=== PATIENT | female | born 2000 | race Caucasian/White ===

== ENCOUNTER 2020-03-16 22:36 | Emergency (ER) | payer OTHER, SELFPAY ==
[2020-03-16 22:41] VITALS: BP 129/67; PULSE 66; RESP 20; TEMP 36.6; O2SAT 97
[2020-03-16 23:11] LABS: Add Manual Diff / Slide Review NO; Basophils Absolute Auto 0 /uL (0-100); Basophils Percent Auto 0.3 % (0-2); Eosinophils Absolute Auto 0 /uL (0-450); Eosinophils Percent Auto 0.3 % (2-4); Hematocrit 41.1 % (36-46); Hemoglobin 13.5 g/dL (12.0-16.0); Lymphocytes Absolute Auto 1900 /uL (1100-4500); Lymphocytes Percent Auto 25.4 % (25-40); Mean Corpuscular HGB Conc 32.9 % (30-36); Mean Corpuscular Hemoglobin 29.7 PG (26-34); Mean Corpuscular Volume 90.2 fL (80-100); Monocytes Absolute Auto 400 /uL (0-900); Monocytes Percent Auto 6.1 % (3-14); Neutrophils Absolute Auto 5000 /uL (1500-7000); Neutrophils Percent Auto 67.9 % (50-75); Platelet Count 241 X10^3/uL (150-400); Red Blood Cell Count 4.55 X10^6/uL (4.0-5.2); Red Cell Distribution Width 12.8 % (11.6-14.8); White Blood Cell Count 7.4 X10^3/uL (4.5-11.0)
--- NOTE | 2020-03-16 23:15 | ED.OVERDOSE ---
HPI - Overdose <Adalgisa Leach, DO - Last Filed: 03/21/20 07:09> General Chief Complaint: Toxicology Problem Stated Complaint: intentional overdose Time Seen by Provider: 03/16/20 22:57 Source: patient and family Mode of arrival: Ambulatory Limitations: no limitations History of Present Illness HPI Narrative: Patient is a 19-year-old female who presents with intentional overdose of Tylenol. She reports taking approximately 15 tablets of 500 mg of Tylenol at around 5:00 p.m. over the course of 2 minutes. She cannot tell me why she took this except that she wants to . She feels like dying is the answer. She is not forthcoming with any information. She states that she has a boyfriend of urine half today is their anniversary. She reports no complications or problems with him. She reports a good relationship with her mother. She says that she overall has a good life. I have spoken with her mom who states that she has had an eating disorder off and on through most of her preteen and teenage years. She is a perfectionist by nature and trying to be premed unfortunately she got a D and chemistry. Her older brother got into [employer] she got into the [employer] in [place]. She was supposed to go to [employer] for an financial internship but due to COVID-19 that was canceled. She also needed to come home early because her roommate was irresponsible and exposed to COVID-19. Mom states that since home she has been exercising more frequently. Her eating disorder seems to be ramping up. Her mom better any lap top so she could do school and she was upset that the screen was 2 small. She also got of the van taken away for something. Mom states that she talked with patient's older brother who spoke with patient whom she confided in that she took Tylenol. complaint: intentional overdose Onset (ago): hour(s) Time: 17:00 Intent: suicide attempt How Overdose Was Discovered: called family/friend Related Data Home Medications Medication Instructions Recorded Confirmed ACETAMINOPHEN (susp) (CHILDREN'S 160 mg PO Q6HP PRN #0 mg 12/06/12 TYLENOL) albuterol sulfate [Proventil HFA] 1 puff INH PRN #0 12/06/12 Allergies Allergy/AdvReac Type Severity Reaction Status Date / Time No Known Drug Allergies Allergy Verified 03/16/20 22:51 Review of Systems <Adalgisa Leach DO - Last Filed: 03/21/20 07:09> Review of Systems ROS Unobtainable: All systems reviewed & are unremarkable except as noted in HPI and below Constitutional Constitutional: Reports as per HPI, Reports anorexia, Denies chills, Denies fever(s), Denies lethargy and Denies weakness Eyes Eyes: Denies change in vision, Denies eye discharge, Denies irritation and Denies loss of vision Cardiovascular Cardiovascular: Denies chest pain, Denies irregular heart rhythm, Denies lightheadedness, Denies palpitations, Denies dyspnea, Denies dyspnea on exertion and Denies orthopnea Respiratory Respiratory: Denies cough, Denies dyspnea, Denies dyspnea on exertion and Denies wheezing Gastrointestinal Gastrointestinal: Denies abdominal pain, Denies change in bowel habits, Denies diarrhea, Denies nausea and Denies vomiting Integumentary/Breasts Skin/Breast: Denies pruritus, Denies erythema, Denies rash and Denies wounds Neurologic Neurologic: Reports behavioral changes, Denies loss of vision and Denies weakness Psychiatric Psychiatric: Reports as per HPI, Reports behavioral changes, Reports change in appetite, Reports depression, Reports irritability and Reports mood swings Endocrine Endocrine: Denies palpitations Allergic/Immunologic Allergic/Immunologic: Denies wheezing Patient History <Adalgisa Leach DO - Last Filed: 03/21/20 07:09> Medical History Eating disorder Exam <Adalgisa Leach DO - Last Filed: 03/21/20 07:09> Initial Vital Signs Initial Vital Signs: Vital Signs Temperature 97.8 F 03/16/20 22:41 Pulse Rate 66 03/16/20 22:41 Respiratory Rate 20 03/16/20 22:41 Blood Pressure 129/67 03/16/20 22:41 Pulse Oximetry 97 03/16/20 22:41 GENERAL: Well groomed well capped young adolescent female thin and in no acute distress. HEENT: Head atraumatic,EOMI, pupils reactive, face symmetric, moist mucous membranes CARDIOVASCULAR: Regular rate and rhythm without murmurs, rubs or gallops. RESPIRATORY: Breath sounds equal bilaterally, no wheezes rales or rhonchi. ABDOMEN: Soft, nontender. Normoactive bowel sounds all 4 quadrants. No guarding or rebound. EXTREMITIES: Normal range of motion, no clubbing or edema. Neurovascularly intact NEUROLOGICAL: Alert and oriented x4.Normal gait and speech. Cranial nerves II through XII grossly intact. SKIN: Warm, dry, no laceration, no petechiae, no rashes or lesions. <Cynthia Raza MD - Last Filed: 03/18/20 07:36> Initial Vital Signs Initial Vital Signs: Vital Signs Temperature 97.8 F 03/16/20 22:41 Pulse Rate 66 03/16/20 22:41 Respiratory Rate 20 03/16/20 22:41 Blood Pressure 129/67 03/16/20 22:41 Pulse Oximetry 97 03/16/20 22:41 Course <Adalgisa Leach DO - Last Filed: 03/21/20 07:09> Orders Ordered: Discontinued Medications Acetylcysteine 8,160 mg/ (Dextrose) 240.8 mls @ 240.8 mls/hr IV NOW ONE Stop: 03/16/20 22:58 Last Admin: 03/17/20 02:34 Dose: Not Given Documented by: UNRULY Acetylcysteine 2,720 mg/ (Dextrose) 513.6 mls @ 128.4 mls/hr IV NOW ONE Stop: 03/16/20 22:58 Last Admin: 03/17/20 02:33 Dose: Not Given Documented by: UNRULY Acetylcysteine 5,440 mg/ (Dextrose) 1,027.2 mls @ 64.2 mls/hr IV NOW ONE Stop: 03/16/20 22:58 Last Admin: 03/17/20 02:34 Dose: Not Given Documented by: UNRULY Sodium Chloride (Normal Saline 0.9%) 1,000 mls @ 1,000 mls/hr IV BOLUS ONE Stop: 03/17/20 00:23 Last Infusion: 03/17/20 02:34 Dose: 0 mls/hr Documented by: Admin: 03/16/20 23:26 Dose: 1,000 mls/hr Documented by: RADHA Sodium Chloride (Normal Saline 0.9%) 1,000 mls @ 1,000 mls/hr IV BOLUS ONE Stop: 03/17/20 07:46 Last Infusion: 03/17/20 11:06 Dose: 0 mls/hr Documented by: Admin: 03/17/20 06:53 Dose: 1,000 mls/hr Documented by: UNRULY Vital Signs Vital signs: Vital Signs - 8 hr 03/17/20 07:00 03/17/20 07:34 03/17/20 08:00 Pulse Rate 62 63 67 Respiratory Rate 18 16 16 Blood Pressure 92/51 L Pulse Oximetry 98 03/17/20 08:30 03/17/20 08:55 03/17/20 08:57 Pulse Rate 74 73 66 Respiratory Rate 20 19 19 Blood Pressure 102/61 102/61 Pulse Oximetry 100 03/17/20 09:00 Pulse Rate 86 Respiratory Rate 21 Blood Pressure Pulse Oximetry <Cynthia Raza MD - Last Filed: 03/18/20 07:36> Course Course Narrative: Care is assumed. 19-year-old woman with increased stressors and anxieties with a Tylenol overdose last night. She is medically cleared Waiting social service consult regarding depression, anxiety and suicide attempt 1232 Seen by Social work. Initially thinking there was a reasonable home discharge plan however Mother didnt feel that should safely care for her at home without another OD attempt. DCR will be contacted to consider MAIA vs better planning for home. SHe is open to treatment (meds and counseling) but not currently involved in either. Still ambivalent about her OD attempt last night. Orders Ordered: Discontinued Medications Acetylcysteine 8,160 mg/ (Dextrose) 240.8 mls @ 240.8 mls/hr IV NOW ONE Stop: 03/16/20 22:58 Last Admin: 03/17/20 02:34 Dose: Not Given Documented by: UNRULY Acetylcysteine 2,720 mg/ (Dextrose) 513.6 mls @ 128.4 mls/hr IV NOW ONE Stop: 03/16/20 22:58 Last Admin: 03/17/20 02:33 Dose: Not Given Documented by: UNRULY Acetylcysteine 5,440 mg/ (Dextrose) 1,027.2 mls @ 64.2 mls/hr IV NOW ONE Stop: 03/16/20 22:58 Last Admin: 03/17/20 02:34 Dose: Not Given Documented by: UNRULY Sodium Chloride (Normal Saline 0.9%) 1,000 mls @ 1,000 mls/hr IV BOLUS ONE Stop: 03/17/20 00:23 Last Infusion: 03/17/20 02:34 Dose: 0 mls/hr Documented by: Admin: 03/16/20 23:26 Dose: 1,000 mls/hr Documented by: RADHA Sodium Chloride (Normal Saline 0.9%) 1,000 mls @ 1,000 mls/hr IV BOLUS ONE Stop: 03/17/20 07:46 Last Infusion: 03/17/20 11:06 Dose: 0 mls/hr Documented by: Admin: 03/17/20 06:53 Dose: 1,000 mls/hr Documented by: UNRULY Vital Signs Vital signs: Vital Signs - 8 hr 03/17/20 07:00 03/17/20 07:34 03/17/20 08:00 Pulse Rate 62 63 67 Respiratory Rate 18 16 16 Blood Pressure 92/51 L Pulse Oximetry 98 03/17/20 08:30 03/17/20 08:55 03/17/20 08:57 Pulse Rate 74 73 66 Respiratory Rate 20 19 19 Blood Pressure 102/61 102/61 Pulse Oximetry 100 03/17/20 09:00 Pulse Rate 86 Respiratory Rate 21 Blood Pressure Pulse Oximetry MDM - Overdose <Adalgisa Leach DO - Last Filed: 03/21/20 07:09> Lab Data Attestation: I reviewed the patient's lab results. Result diagrams: 03/16/20 22:55 03/16/20 22:55 Labs: Lab Results 03/16/20 03/16/20 03/16/20 Range/Units 22:55 22:55 22:55 WBC 7.4 (4.5-11.0) X10^3/uL RBC 4.55 (4.0-5.2) X10^6/uL Hgb 13.5 (12.0-16.0) g/dL Hct 41.1 (36-46) % MCV 90.2 (80-100) fL MCH 29.7 (26-34) PG MCHC 32.9 (30-36) % RDW 12.8 (11.6-14.8) % Plt Count 241 (150-400) X10^3/uL Neut % (Auto) 67.9 (50-75) % Lymph % (Auto) 25.4 (25-40) % [place] % (Auto) 6.1 (3-14) % Eos % (Auto) 0.3 L (2-4) % Baso % (Auto) 0.3 (0-2) % Neut # (Auto) 5000 (5118-1720) /uL Lymph # (Auto) 1900 (3563-9690) /uL [place] # (Auto) 400 (0-900) /uL Eos # (Auto) 0 (0-450) /uL Baso # (Auto) 0 (0-100) /uL Sodium 137 (137-145) mmol/L Potassium 3.8 (3.4-5.1) mmol/L Chloride 103 (98-107) mmol/L Carbon Dioxide 26 (22-32) mmol/L BUN 11 (7-17) mg/dL Creatinine 0.69 (0.52-1.04) mg/dL Estimated GFR > 60.0 (>60) mL/min BUN/Creatinine Ratio 15.9 (6-22) Glucose 94 (70-100) mg/dL Calcium 9.8 (8.4-10.2) mg/dL Total Bilirubin 0.5 (0.2-1.3) mg/dL AST 29 (14-36) IU/L ALT 16 (<35) IU/L Alkaline Phosphatase 71 (38-126) U/L Total Protein 7.9 (6.3-8.2) g/dL Albumin 4.7 (3.5-5.0) g/dL Globulin 3.2 (1.7-4.1) g/dL Albumin/Globulin Ratio 1.5 (1.0-2.8) TSH 1.90 (0.47-4.68) uIU/mL Free T4 1.08 (0.78-2.19) ng/dL Salicylates < 1.0 (<20) mg/dL U Opiates 300ng/mL cut (Negative) Ur Oxycodone Screen (Negative) Urine Methadone Screen (Negative) Acetaminophen 86 H* (10-30) ug/mL Ur Barbiturates Screen (Negative) U Tricyclic Antidepress (Negative) Ur Phencyclidine Scrn (Negative) Ur Amphetamines Screen (Negative) U Methamphetamines Scrn (Negative) Ur MDMA Scrn (Ecstasy) (Negative) U Benzodiazepines Scrn (Negative) Urine Cocaine Screen (Negative) U Marijuana (THC) Screen (Negative) Ethyl Alcohol < 10 ( - 10) mg/dL COVID-19 PCR (Negative) 03/16/20 03/17/20 03/17/20 Range/Units 23:20 01:00 09:30 WBC (4.5-11.0) X10^3/uL RBC (4.0-5.2) X10^6/uL Hgb (12.0-16.0) g/dL Hct (36-46) % MCV (80-100) fL MCH (26-34) PG MCHC (30-36) % RDW (11.6-14.8) % Plt Count (150-400) X10^3/uL Neut % (Auto) (50-75) % Lymph % (Auto) (25-40) % [place] % (Auto) (3-14) % Eos % (Auto) (2-4) % Baso % (Auto) (0-2) % Neut # (Auto) (9541-1384) /uL Lymph # (Auto) (7724-3704) /uL [place] # (Auto) (0-900) /uL Eos # (Auto) (0-450) /uL Baso # (Auto) (0-100) /uL Sodium (137-145) mmol/L Potassium (3.4-5.1) mmol/L Chloride (98-107) mmol/L Carbon Dioxide (22-32) mmol/L BUN (7-17) mg/dL Creatinine (0.52-1.04) mg/dL Estimated GFR (>60) mL/min BUN/Creatinine Ratio (6-22) Glucose (70-100) mg/dL Calcium (8.4-10.2) mg/dL Total Bilirubin (0.2-1.3) mg/dL AST (14-36) IU/L ALT (<35) IU/L Alkaline Phosphatase (38-126) U/L Total Protein (6.3-8.2) g/dL Albumin (3.5-5.0) g/dL Globulin (1.7-4.1) g/dL Albumin/Globulin Ratio (1.0-2.8) TSH (0.47-4.68) uIU/mL Free T4 (0.78-2.19) ng/dL Salicylates (<20) mg/dL U Opiates 300ng/mL cut Negative (Negative) Ur Oxycodone Screen Negative (Negative) Urine Methadone Screen Negative (Negative) Acetaminophen 70 H* (10-30) ug/mL Ur Barbiturates Screen Negative (Negative) U Tricyclic Antidepress Positive H (Negative) Ur Phencyclidine Scrn Negative (Negative) Ur Amphetamines Screen Negative (Negative) U Methamphetamines Scrn Negative (Negative) Ur MDMA Scrn (Ecstasy) Negative (Negative) U Benzodiazepines Scrn Negative (Negative) Urine Cocaine Screen Negative (Negative) U Marijuana (THC) Screen Negative (Negative) Ethyl Alcohol ( - 10) mg/dL COVID-19 PCR Negative (Negative) Point of Care Testing Test Results Negative Urine Dip Bedside Urine Glucose Negative Bedside Urine Bilirubin - Negative Urine Specific Ola 1.030 Bedside Urine Occult Blood - Negative Bedside Urine pH 6.0 Bedside Urine Protein +/- 15 Bedside Urine Urobilinogen - Negative Bedside Urine Nitrite - Negative Bedside Urine Leukocytes - Negative Esterase MDM Narrative Medical decision making narrative: Poison control initially contacted initial Tylenol level is 86 the 6 hour shira of toxic is 90. Patient is just under the market this time poison Control does not recommend starting an acetylcysteine. Repeat acetaminophen level is 70 at approximately the 8 hour shira. Poison Control is again consulted at this time still not a toxic level and still no need for treatment. I have again questioned, patient she is not forthcoming with information and does not want to talk. Would rather wait for social welfare administrator. At this time she is not cooperating cannot contract for safety does not understand the severity of what she has done. Mom is aware of situation. Holding patient in the ED until further evaluation by social Work Patient signed out to Dr. Raza for further medical management <Cynthia Raza MD - Last Filed: 03/18/20 07:36> Lab Data Attestation: I reviewed the patient's lab results. Labs: Lab Results 03/16/20 03/16/20 03/16/20 Range/Units 22:55 22:55 22:55 WBC 7.4 (4.5-11.0) X10^3/uL RBC 4.55 (4.0-5.2) X10^6/uL Hgb 13.5 (12.0-16.0) g/dL Hct 41.1 (36-46) % MCV 90.2 (80-100) fL MCH 29.7 (26-34) PG MCHC 32.9 (30-36) % RDW 12.8 (11.6-14.8) % Plt Count 241 (150-400) X10^3/uL Neut % (Auto) 67.9 (50-75) % Lymph % (Auto) 25.4 (25-40) % [place] % (Auto) 6.1 (3-14) % Eos % (Auto) 0.3 L (2-4) % Baso % (Auto) 0.3 (0-2) % Neut # (Auto) 5000 (3441-2085) /uL Lymph # (Auto) 1900 (8529-3946) /uL [place] # (Auto) 400 (0-900) /uL Eos # (Auto) 0 (0-450) /uL Baso # (Auto) 0 (0-100) /uL Sodium 137 (137-145) mmol/L Potassium 3.8 (3.4-5.1) mmol/L Chloride 103 (98-107) mmol/L Carbon Dioxide 26 (22-32) mmol/L BUN 11 (7-17) mg/dL Creatinine 0.69 (0.52-1.04) mg/dL Estimated GFR > 60.0 (>60) mL/min BUN/Creatinine Ratio 15.9 (6-22) Glucose 94 (70-100) mg/dL Calcium 9.8 (8.4-10.2) mg/dL Total Bilirubin 0.5 (0.2-1.3) mg/dL AST 29 (14-36) IU/L ALT 16 (<35) IU/L Alkaline Phosphatase 71 (38-126) U/L Total Protein 7.9 (6.3-8.2) g/dL Albumin 4.7 (3.5-5.0) g/dL Globulin 3.2 (1.7-4.1) g/dL Albumin/Globulin Ratio 1.5 (1.0-2.8) TSH 1.90 (0.47-4.68) uIU/mL Free T4 1.08 (0.78-2.19) ng/dL Salicylates < 1.0 (<20) mg/dL U Opiates 300ng/mL cut (Negative) Ur Oxycodone Screen (Negative) Urine Methadone Screen (Negative) Acetaminophen 86 H* (10-30) ug/mL Ur Barbiturates Screen (Negative) U Tricyclic Antidepress (Negative) Ur Phencyclidine Scrn (Negative) Ur Amphetamines Screen (Negative) U Methamphetamines Scrn (Negative) Ur MDMA Scrn (Ecstasy) (Negative) U Benzodiazepines Scrn (Negative) Urine Cocaine Screen (Negative) U Marijuana (THC) Screen (Negative) Ethyl Alcohol < 10 ( - 10) mg/dL COVID-19 PCR (Negative) 03/16/20 03/17/20 03/17/20 Range/Units 23:20 01:00 09:30 WBC (4.5-11.0) X10^3/uL RBC (4.0-5.2) X10^6/uL Hgb (12.0-16.0) g/dL Hct (36-46) % MCV (80-100) fL MCH (26-34) PG MCHC (30-36) % RDW (11.6-14.8) % Plt Count (150-400) X10^3/uL Neut % (Auto) (50-75) % Lymph % (Auto) (25-40) % [place] % (Auto) (3-14) % Eos % (Auto) (2-4) % Baso % (Auto) (0-2) % Neut # (Auto) (2058-1138) /uL Lymph # (Auto) (7221-4597) /uL [place] # (Auto) (0-900) /uL Eos # (Auto) (0-450) /uL Baso # (Auto) (0-100) /uL Sodium (137-145) mmol/L Potassium (3.4-5.1) mmol/L Chloride (98-107) mmol/L Carbon Dioxide (22-32) mmol/L BUN (7-17) mg/dL Creatinine (0.52-1.04) mg/dL Estimated GFR (>60) mL/min BUN/Creatinine Ratio (6-22) Glucose (70-100) mg/dL Calcium (8.4-10.2) mg/dL Total Bilirubin (0.2-1.3) mg/dL AST (14-36) IU/L ALT (<35) IU/L Alkaline Phosphatase (38-126) U/L Total Protein (6.3-8.2) g/dL Albumin (3.5-5.0) g/dL Globulin (1.7-4.1) g/dL Albumin/Globulin Ratio (1.0-2.8) TSH (0.47-4.68) uIU/mL Free T4 (0.78-2.19) ng/dL Salicylates (<20) mg/dL U Opiates 300ng/mL cut Negative (Negative) Ur Oxycodone Screen Negative (Negative) Urine Methadone Screen Negative (Negative) Acetaminophen 70 H* (10-30) ug/mL Ur Barbiturates Screen Negative (Negative) U Tricyclic Antidepress Positive H (Negative) Ur Phencyclidine Scrn Negative (Negative) Ur Amphetamines Screen Negative (Negative) U Methamphetamines Scrn Negative (Negative) Ur MDMA Scrn (Ecstasy) Negative (Negative) U Benzodiazepines Scrn Negative (Negative) Urine Cocaine Screen Negative (Negative) U Marijuana (THC) Screen Negative (Negative) Ethyl Alcohol ( - 10) mg/dL COVID-19 PCR Negative (Negative) Point of Care Testing Test Results Negative Urine Dip Bedside Urine Glucose Negative Bedside Urine Bilirubin - Negative Urine Specific Ola 1.030 Bedside Urine Occult Blood - Negative Bedside Urine pH 6.0 Bedside Urine Protein +/- 15 Bedside Urine Urobilinogen - Negative Bedside Urine Nitrite - Negative Bedside Urine Leukocytes - Negative Esterase MDM Narrative Medical decision making narrative: Spoke with DCR NOT need to be detained or hospitalized hope is to return to Father's home, Mother would like another night in the hospital Cherelle agrees that she needs to interact with her own PCP (mother is an [employer]), would like to see a dentist and would also like to get into individual counseling. She has insurance for each of these. 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 Patient will need hlep with finding PCP and counseling through their private insurance. Will give them the human resources generalist information. She will be safe for home discharge Discharge Plan Departure Patient Disposition: Home Clinical Impression: Anxiety Suicide attempt by acetaminophen overdose Qualifiers: Encounter type: initial encounter Qualified Code(s): T39.1X2A - Poisoning by 4-Aminophenol derivatives, intentional self-harm, initial encounter Depression Qualifiers: Depression Type: unspecified Qualified Code(s): F32.9 - Major depressive disorder, single episode, unspecified Instructions: DI for Suicidal Ideation-Adult Activity Restrictions/Additional Instructions: You have spoken with our social welfare administrator and our DCR. If you feel like you need to hurt yourself again, please return to the ER You can call the health human resources generalist for [facility] at [phone] to help in finding a primary care physician as well as a therapist and they may be able to even suggest a dentist. I wish you the best Prescriptions: No Action albuterol sulfate [Proventil HFA] 90 MCG/PUFF HFA aerosol inhaler 1 puff INH PRNQty: 0 RF: 0 ACETAMINOPHEN (susp) (CHILDREN'S TYLENOL) 160 mg PO Q6HP PRNQty: 0 RF: 0 Referrals: Rafa Camarillo MD [Primary Care Provider] -
[2020-03-16 23:17] LABS: Alanine Aminotransferase 16 IU/L (<35); Albumin 4.7 g/dL (3.5-5.0); Albumin Globulin Ratio 1.5 (1.0-2.8); Alkaline Phosphatase 71 U/L (38-126); Aspartate Aminotransferase 29 IU/L (14-36); BUN Creatinine Ratio 15.9 (6-22); Bilirubin Total 0.5 mg/dL (0.2-1.3); Blood Urea Nitrogen 11 mg/dL (7-17); Calcium 9.8 mg/dL (8.4-10.2); Carbon Dioxide 26 mmol/L (22-32); Chloride 103 mmol/L (98-107); Estimated Glomerular Filt Rate > 60.0 mL/min (>60); Globulin 3.2 g/dL (1.7-4.1); Glucose 94 mg/dL (70-100); HEMOLYSIS < 15 (0-50); Potassium 3.8 mmol/L (3.4-5.1); Sodium 137 mmol/L (137-145); Total Protein 7.9 g/dL (6.3-8.2)
[2020-03-16] MEDS: SODIUM CHLORIDE 0.9% 1,000 ML 1000 ML IV (23:26)
--- NOTE | 2020-03-16 23:30 | PC.NURSE ---
Pt placed in high-vis room. Flat affect, poor eye-contact. Pt states no history of depression/SI, that she took the pills today to . Pt denies recent stressors. Denies continued intent for self-harm. I have a good life. Page sent out for sitter x 2 without response. Pt resting in bed, frequent checks for safety.
[2020-03-16 23:33] LABS: Ethanol (ETOH) < 10 mg/dL; Salicylate < 1.0 mg/dL (<20)
[2020-03-16 23:34] VITALS: BP 115/63; PULSE 63; RESP 18; O2SAT 100
[2020-03-16 23:45] LABS: COVID19 -Nasal RAPID Negative (Negative)
[2020-03-17] VITALS (10 sets, daily range): BP systolic 92–112; BP diastolic 51–79; PULSE 61–86; RESP 15–21; O2SAT 98–100
[2020-03-17 00:09] LABS: Free T4, Direct Thyroxine 1.08 ng/dL (0.78-2.19)
--- NOTE | 2020-03-17 00:24 | PC.NURSE ---
Per verbal order from Dr Leach, plan to hold acetylcystine IV until 2nd acetaminophen level is back.
[2020-03-17 01:24] LABS: Acetaminophen 70 ug/mL (10-30)
[2020-03-17 01:24] LABS: Acetaminophen 86 ug/mL (10-30)
[2020-03-17] MEDS: SODIUM CHLORIDE 0.9% 1,000 ML 1000 ML IV (06:53)
--- NOTE | 2020-03-17 07:01 | PC.NURSE ---
Pt rested in the night without providing urine sample. Care discussed with Dr Leach, 2nd liter NS hung per order. Pt updated to plan of care, she declined to go to the bathroom this morning. Pt reports she is not feeling suidical. States she wants to leave by noon. Plan of care reviewed with pt-- urine sample is necessary to complete medical screening, and she must be seen by social work prior to discharge. Pt agreeable.
[2020-03-17 10:05] LABS: UR Morphine/Opiate cutoff 300 Negative (Negative); Ur Creatinine Normal (Normal); Ur Specific Gravity Normal (Normal); Urine Amphetamines Negative (Negative); Urine Barbiturates Negative (Negative); Urine Benzodiazepines Negative (Negative); Urine Cocaine Negative (Negative); Urine MDMA Negative (Negative); Urine Methamphetamines Negative (Negative); Urine Phencyclidine Negative (Negative); Urine Tetrahydrocannabinol Negative (Negative); Urine pH Normal (Normal)
[2020-03-17 10:06] LABS: Urine Methadone Negative (Negative); Urine Oxycodone Negative (Negative); Urine Tricyclic Antidepressant Positive (Negative)
--- NOTE | 2020-03-17 11:54 | PC.NURSE ---
Patient states she doesnt eat meat, updated nursing staff for future meals. Pt also states she is not hungry now, but will snack.
--- NOTE | 2020-03-17 14:30 | CM.SWNOTE ---
Patient is a 19 year old female who was admitted to [facility] ED for intentional overdose on 03/16/20. Pt has REG DIMENSIONS for insurance and currently not established with a PCP as her previous PCP is a retired tar distributor operator Rafa Camarillo. EMR was reviewed. Discharge Planning/Care Management ED Psychiatric Symptoms Assessment Start: 03/16/20 23:51 Freq: Status: Active Protocol: Document 03/16/20 23:51 KMW (Rec: 03/16/20 23:54 KMW [id number]) Psychiatric Symptoms Assessment Symptoms/Complaint Intentional overdose History Of Same No: Pt denies Context Unknown Associated Symptoms Insomnia If Self Harm Intentional Overdose Details of Plan Pt denies history of SI. Pt states she does not want to at this time. Level of Consciousness Alert Patient Orientation Name,Age,Birthday,Month,Date, Year,Day of Week,Place, Situation Patient Behavior/Mood Flat,Guarded Ability to Follow Directions Good Patient Cognition Impaired No Affect Description Calm,Depressed,Flat,Withdrawn Patient Appearance Well Groomed Hallucination Type None Delusion Description Not Present Thought Process: Normal Homicidal Ideation None Nausea/Vomiting None Document 03/17/20 09:18 JAZMYNE (Rec: 03/17/20 09:19 SMICHEAU [id number]) Psychiatric Symptoms Assessment Level of Consciousness Alert Affect Description Calm Document 03/17/20 13:16 SMIRACHIDAU (Rec: 03/17/20 14:17 SMICHEAU [id number]) Psychiatric Symptoms Assessment Level of Consciousness Alert,Appropriate Affect Description Calm PROMOTIONS DIRECTOR - Educational Sign Language Interpreter Assessment Start: 03/17/20 12:53 Freq: Status: Active Protocol: Document 03/17/20 12:53 BF (Rec: 03/17/20 14:30 BF [id number]) PROMOTIONS DIRECTOR/Educational Sign Language Interpreter Assessment Start date 03/17/20 Visit Start Time 10:30 End date 03/17/20 Visit End Time 12:30 Total time Care Management spent on 160 min patient visit-in minutes Presenting Problem Patient admitted with intentional overdose on Tylenol Precipitating Event(s) Pt initially not able to identify triggering event but eventually began to identify that COVID restrictions have impacted her psychosocial stressors of returning back home for online college, two major trips cancelled, inability to live independently due to COVID, lack of social interactions. Patient Strengths Patient is very passionate about experiencing new things in life like travel, exploring spiritual outlets Current Behavioral Health Provider(s) Denies Include Facility, Provider, Ph. # Psych. Hx Mental Health and Chemical Pt denies CD hx and eating Dependency disorder and undiagnosed ADD Family Hx of Behavioral Abuse Pt's dad has a remote hx of suicide attempt at age 19. Psychiatric Hospitalizations (date(s)/ Denies location) Psychosocial information & Support Pt recently moved back home to [place] her dad's house due to COVID college restrictions and online school and has struggled with the lack of social outlets due to COVID. Pt has a very supportive and kind boyfriend locally per mother and self. School/Work Pt is enrolled in online college currently, working some for [employer] with boyfriend. Legal Matters - Outstanding Issues Denies Orientation (Person/Place/Time) Pt alert and oriented x3 Stated Mood Pt is quite pleasant and cooperative and able to communicate effectively but seems to lack some insight or have ambivilence to her overdose. Affect (Congruent with Mood?) Pt's affect is somewhat flat and states her ambivilence towards her overdose but able to have congruent responses of sadness, anxiousness, and laughter at appropriate times. Thought Content - Specify/Describe Pt endorses a need to have Obsessions, Delusions, Hallucinations things clean and organized and feels much more calm when her environment is cleanly. Pt denies any auditory or visual distrubances and does not appear to be reacting to any stimuli. Thought Processes (Kpfsfqp-Cjljxeac-Ozxf Pt seems to have fairly Nysuyteo-Onvrngvh-Nmtdisizwu- logical and coherent thought Rowfwsnprveyet-Mxjsxtr-Bmzvfwzbzhhv- process and able to identify Thought Blocking) some future goals and interests but pt lacks full insight into her suicide attempt and accepting changes to safety plan for the community Speech (Znqhsr-Qbfq-Xsjbsbu-Rapid-Soft- Speech is normal, not Loud-Pressured) pressured Motor (Nfenmm-Adqqxazas-Zccl-Other) Motor is normal Insight (Fluv-Oona-Mqpt/Limited) Insight is limited regarding her suicide attempt and ambivilence. Good insight into her future goals Judgement (Nyag-Zgev-Fpow/Limited) Judgement appears to be limited due to her statement of intentional overdose being impulsive. Impulse Control (Adequate-Impaired) Impaired Memory (Ikncbmdgt-Dyzdpw-Dyktaa, Memory is immediate Impaired-Intact) Attention (Intact-Impaired) Attention is intact and focused Behavior (Appropriate-Inappropriate) Appropriate Suicidal Ideation (Plan) No: Patient currently denies but also states ambivilence Homicidal Ideation (Plan) No Intervention PROMOTIONS DIRECTOR spent lengthy time meeting individually with pt, then individually with mother with patient's consent, then together with both pt and mother. Clear discussion regarding safety planning for the community and resources available vs Inpt tx voluntary vs involuntary. Pt currently denying suicidal ideation or plan to attempt again after d/ c and willing to discuss plans to return home with some oversight, interested and agreeable with outpt Therapist and Psychiatrist but not currently established but willing to go through the process, and pt wanting to get back into my routine of sleep, working out, and working for [employer]. Pt able to identify protective factors but struggles with mother's requirements for the next few days to remain safe and be home more. Attempted to create a compromised plan but both confirm they have a complex relationship and tend to butt heads. Unable to come to a clear safety plan that both pt and mother are agreeable with and therefore discussion of calling [facility] for assessment to determine if pt is safe for return to the community vs Involuntary placement. Both mom and pt agreeable with [facility] being dispatched. RA Plan PROMOTIONS DIRECTOR called [facility] and updated on pt status and inability to currently safety plan and pt not being voluntary for Inpt MH tx. Requested [facility] to be dispatched and ED HENNY faxed the MD attestation of pt being medically cleared. PROMOTIONS DIRECTOR updated RN, HENNY, and waiting for [facility] assessment.
--- NOTE | 2020-03-17 16:55 | PC.NURSE ---
Pt on Ipad with [facility].
== END 2020-03-17 20:14 | disposition home or self-care (01) ==
PROVIDERS: Emergency Medicine; Emergency Provider Emergency Medicine; Family Provider Pediatrics; PCP Pediatrics
DX: T39.1X2A Poisoning by 4-Aminophenol derivatives, intentional self-harm, initial encounter (principal); F32.9 Major depressive disorder, single episode, unspecified; F41.9 Anxiety disorder, unspecified
CPT/HCPCS: 36415; 80053; 80305; 80320; 80329; 81003; 81025; 84439; 84443; 85025; 87635; 96360; 96361; 99284; G0480